=== PATIENT | female | born 1985 | race Caucasian/White ===

== ENCOUNTER 2024-02-19 11:45 | Emergency (ER) | payer BC, SELFPAY ==
[2024-02-19 11:45] VITALS: BMI 26.5
[2024-02-19 11:50] VITALS: BP 132/95
[2024-02-19] MEDS: RABAVERT RABIES VACC W-DILUENT 2.5 UNIT IM (13:49)
[2024-02-19] MEDS: HyperRAB 1486 UNIT IM (13:50)
--- NOTE | 2024-02-19 14:17 | ED.GENMED ---
History of Present Illness
General
Chief Complaint: Rabies
Source: patient
Exam Limitations: none
History of Present Illness
History of Present Illness:
38-year-old healthy female who visited a farm every Thursday, during that visit she has been feeding an elderly horse who had many medical issues including arthritis. The horse eventually and was cremated. The overcoil stepper has contacted
numerous people who have been in contact with the horse because it is reported that the horse had some foamy saliva at the time of its . The last time pt fed the horse was about 3 weeks ago. No other contact other than holding flat hand out to
feed. Pt feels well.
Past History
Past History
ED Past Medical History: None
Social History
Tobacco: Non-smoker
Alcohol: Occasional
Personal:
Living: with family
Review of Systems
Review of Systems
Allergies reviewed?: Yes
All Other Systems: ROS reviewed and negative except as documented in HPI and ROS
Constitutional: Reports no symptoms
Musculoskeletal: Reports no symptoms
Skin: Reports no symptoms
Neurological: Reports no symptoms
Phy Exam
Physical Exam
Physical Exam:
PHYSICAL EXAMINATION:
General: no apparent distress, not acutely ill
Neuro: alert and oriented.
Psychiatric: well kept. interactive and cooperative
Musculoskeletal: Moves with ease
Skin: Warm, pink.
Course
Orders/Labs/Results
Orders:
Orders
02/19/24 12:48
Rabies Immune Globulin/Pf [HyperRAB] 1,486 unit IM NOW STA
02/19/24 13:00
Rabies Vaccine (Pcec)/Pf [Rabavert Rabies Vacc W-Diluent] 2.5 unit IM .ONCE ONE
Vital Signs
Initial and Last Documented VS:
Initial Vital Signs
Temp Pulse Resp BP Pulse Ox
98.9 F 79 20 132/95 99
02/19/24 11:50 02/19/24 11:50 02/19/24 11:50 02/19/24 11:50 02/19/24 11:50
Last Documented Vital Signs
Temp Pulse Resp BP Pulse Ox
98.9 F 79 20 132/95 99
02/19/24 11:50 02/19/24 11:50 02/19/24 11:50 02/19/24 11:50 02/19/24 11:50
MDM/Problems Addressed
MDM/Problems Addressed:
38-year-old healthy female who visited a farm every Thursday, during that visit she has been feeding an elderly horse who had many medical issues including arthritis. The horse eventually and was cremated. The overcoil stepper has contacted
numerous people who have been in contact with the horse because it is reported that the horse had some foamy saliva at the time of its . The last time pt fed the horse was about 3 weeks ago. No other contact other than holding flat hand out to
feed. Pt feels well.
Rabies immunization protocol started
Patient will be out of town for the third immunization, prescription for RabAvert given and she will get it at [facility].
*Critical Care Note
Total Time (30-74mins, 75-104mins- exclusive of procedures): Not Applicable
ED Attending Note
-
Portions of this chart may have been created with voice recognition software.� Occasional wrong word or��sound alike� substitutions may have occurred due to the inherent limitations of voice recognition software.
Discharge Plan
Departure
Patient Disposition: Home (Routine Discharge)
Date of Disposition: 02/19/24
Time of Disposition: 14:02
Patient with high blood pressure during this ER visit?: No
Condition: Good
Discharge Problem:
Need for immunization against rabies
Instructions: Rabies
Prescriptions:
New
RabAvert (PF) 2.5 unit suspension for reconstitution
1 ml IM ONCE Qty: 2 0RF
Rx Instructions:
Give 1.0 ml on 02/21 and 1.0 ml on 03/07/24
RabAvert (PF) 2.5 unit suspension for reconstitution
1 ml IM ONCE Qty: 1 0RF
Rx Instructions:
Give 1.0 ml on 02/29/24
Referrals:
Taye Rodriguez MD [Family Provider] -
Stand Alone Forms: Rabies Vaccine Post Exp Dosing
Activity Restrictions/Additional Instructions:
As we discussed, call the [facility] to make appointments for your next Rabies booster shots. Take your prescriptions with you.
[place] the [place] [facility] [place] be able to give you that one.
Interventions
Interventions:
*Risk Screen - Suicide Last Done: 02/19/24 11:50
*Neglect/Abuse Screening Last Done: 02/19/24 11:50
ED- Fall Risk Assessment Last Done: 02/19/24 11:50
*Nursing Disposition Last Done: 02/19/24 14:34
Discharge Date and Time
Discharge Date/Time: 02/19/24 14:35
Print Language: MALAY
== END 2024-02-19 14:35 | disposition home or self-care (01) ==
LOC: EMR 11:45
PROVIDERS: EMERGENCY PHYSICIAN Emergency Medicine; FAMILY PHYSICIAN Family Medicine
DX: Z20.3 Contact with and (suspected) exposure to rabies (principal); Z23 Encounter for immunization
CPT/HCPCS: 99282; 90471; 96372; 90375; 90675

== ENCOUNTER 2024-02-22 08:38 | Outpatient (RCR) | payer BC, SELFPAY ==
[2024-02-22 08:35] VITALS: BP 151/89
[2024-02-22] MEDS: RABAVERT RABIES VACC W-DILUENT 2.5 UNIT IM (09:00)
== END 2024-02-23 08:32 | disposition home or self-care (01) ==
LOC: OID 08:38
PROVIDERS: ATTENDING PHYSICIAN Registered Nurse; FAMILY PHYSICIAN Family Medicine
DX: Z20.3 Contact with and (suspected) exposure to rabies (principal); Z23 Encounter for immunization
CPT/HCPCS: 90471; 90675

== ENCOUNTER 2024-03-07 08:41 | Outpatient (RCR) | payer BC, SELFPAY ==
[2024-03-07 08:47] VITALS: BP 132/83
[2024-03-07] MEDS: RABAVERT RABIES VACC W-DILUENT 2.5 UNIT IM (08:53)
== END 2024-03-07 14:39 | disposition home or self-care (01) ==
LOC: OID 08:41
PROVIDERS: ATTENDING PHYSICIAN Registered Nurse; FAMILY PHYSICIAN Family Medicine
DX: Z20.3 Contact with and (suspected) exposure to rabies (principal); Z23 Encounter for immunization
CPT/HCPCS: 90471; 90675